=== PATIENT | female | born 1955 | race Caucasian/White ===

== ENCOUNTER → 2019-04-29 | Outpatient (CLI) | payer OTHER ==
[~2019-04-29] MED LIST: LEVO50TA5 PO; LISI1TAB3 PO; MULT-658 PO; OMEG-170 PO; PRAV40TA2 PO
[2019-04-29 09:58] LABS: ALBUMIN 4.6 g/dL (3.4-5.0); ANION GAP 4 mmol/L (5-15); CALCIUM 9.1 mg/dL (8.5-10.1); CHLORIDE 106 mmol/L (98-107)
[2019-04-29 10:02] LABS: ALANINE AMINOTRANSFERASE 30 U/L (12-78); ALKALINE PHOSPHATASE 116 U/L (45-117); BILIRUBIN,TOTAL 0.4 mg/dL (0.2-1.0); CREATININE 0.76 mg/dL (0.55-1.02); TOTAL PROTEIN 7.8 g/dL (6.4-8.2)
[2019-04-29 10:48] LABS: MICROSCOPIC INDICATED
[2019-04-29 10:51] LABS: CULTURE INDICATED? YES
== END | disposition home or self-care (01) ==
LOC: STAR 08:15
PROVIDERS: ATTEND Surgery
DX: Z01.818 Encounter for other preprocedural examination (principal); I49.3 Ventricular premature depolarization
CPT/HCPCS: 36415; 80053; 81001; 87077; 87086; 87186; 93005

== ENCOUNTER → 2019-05-01 | Outpatient (CLI) | payer OTHER | END | disposition home or self-care (01) | LOC: CFH 08:34 | PROVIDERS: ATTEND Surgery | DX: D24.1 Benign neoplasm of right breast (principal); E78.00 Pure hypercholesterolemia, unspecified; Z85.6 Personal history of leukemia; Z90.710 Acquired absence of both cervix and uterus; Z98.890 Other specified postprocedural states | CPT/HCPCS: 19281; J3490 ==

== ENCOUNTER 2019-05-04 05:43 | Day surgery (SDC) | payer OTHER ==
[~2019-05-04] VITALS: Ht 154.9 cm; Wt 54.8 kg
[~2019-05-04 05:43] MED LIST changes: +LIDOCAINE 1%, 20ML ONE; +LIDOCAINE 1%-EPI 1:100K, 20ML ONE; +SODIUM BICARBONATE 4.2%, 5ML ONE
[2019-05-04] MEDS ORDERED: LACTATED RINGERS 1,000 ML IV SCH (06:37)
[2019-05-04 06:39] VITALS: BP 175/90
[2019-05-04] MEDS ORDERED: BUPIVACAINE/PF 0.5% ONE (06:49)
[2019-05-04] MEDS ORDERED: EPINEPHRINE 1 MG/ML, 1ML ONE (06:49)
[2019-05-04] MEDS ORDERED: LIDOCAINE-MPF 1%, 2ML INFIL ONE (07:00)
[2019-05-04] MEDS ORDERED: FENTANYL PF 100 MCG/2ML ONE (07:09)
[2019-05-04] MEDS ORDERED: MIDAZOLAM 1 MG/ML, 2ML ONE (07:09)
[2019-05-04] MEDS ORDERED: ONDANSETRON 2MG/ML, 2ML ONE (07:46)
[2019-05-04] MEDS ORDERED: CEFAZOLIN 1,000 MG ONE (07:46)
[2019-05-04] MEDS ORDERED: DEXAMETHASONE 4 MG/ML, 1ML ONE (07:46)
[2019-05-04] MEDS ORDERED: PROPOFOL 10 MG/ML, 20ML ONE (07:46)
[2019-05-04] MEDS ORDERED: LABETALOL 5MG/ML, 20ML IV PRN (08:00)
[2019-05-04] MEDS ORDERED: FENTANYL PF 100 MCG/2ML IV PRN (08:00)
[2019-05-04] MEDS ORDERED: hydrALAzine 20 MG/ML, 1ML IV PRN (08:00)
[2019-05-04] MEDS ORDERED: ALBUTEROL SULFATE 2.5 MG/3 ML NPPB PRN (08:00)
[2019-05-04] MEDS ORDERED: PROMETHAZINE 25 MG/ML, 1ML IV PRN (08:00)
[2019-05-04] MEDS ORDERED: DIAZEPAM 5 MG/ML, 2ML IVPush PRN (08:00)
[2019-05-04] MEDS ORDERED: OXYcodone 5 MG/5 ML ORAL.SOL UDC PO PRN (08:00)
[2019-05-04] MEDS ORDERED: HYDROmorphone 2 MG/ML, 1ML IVPush PRN (08:00)
[2019-05-04] MEDS ORDERED: MEPERIDINE/PF 25MG/0.5ML IVPush PRN (08:00)
[2019-05-04] MEDS ORDERED: KETOROLAC 30 MG/1 ML IV PRN (08:00)
[2019-05-04] MEDS ORDERED: ACETAMINOPHEN 325 MG TABLET PO PRN (08:00)
[2019-05-04] MEDS ORDERED: HYDROcodone/APAP 5/325 TABLET ONE (09:22)
== END 2019-05-04 10:40 | disposition home or self-care (01) ==
LOC: OUT 05:43
PROVIDERS: ATTEND Surgery
DX: D24.1 Benign neoplasm of right breast (principal); C95.90 Leukemia, unspecified not having achieved remission; E78.00 Pure hypercholesterolemia, unspecified; E89.0 Postprocedural hypothyroidism; Z79.890 Hormone replacement therapy; Z79.899 Other long term (current) drug therapy; Z90.710 Acquired absence of both cervix and uterus; Z94.81 Bone marrow transplant status; Z98.890 Other specified postprocedural states; Z83.3 Family history of diabetes mellitus; Z82.49 Family history of ischemic heart disease and other diseases of the circulatory system; Z82.61 Family history of arthritis
CPT/HCPCS: 19125; 76098; 88305; J0171; J0690; J1100; J2250; J2405; J2704; J3010; J7120; J3490